=== PATIENT | female | born 1975 | race Caucasian/White ===

== ENCOUNTER 2024-10-17 10:40 | Emergency (ER) | payer BC ==
[~2024-10-17] VITALS: Ht 165.1 cm; Wt 70.6 kg
[2024-10-17] MEDS: KETOROLAC 30 MG/ML 1 ML VIAL IV ONE (13:00)
[2024-10-17 13:12] LABS: PLATELET COUNT, AUTOMATED 218 10^3/uL (150-450)
[2024-10-17 13:43] LABS: ALT/SGPT 24 U/L (7.0-40); AST/SGOT 24 U/L (<34); CALCIUM LEVEL 9.2 MG/DL (8.5-10.1); CARBON DIOXIDE LEVEL 28 MMOL/L (20-31); CHLORIDE LEVEL 104 MMOL/L (98-107); CREATININE FOR GFR 0.72 MG/DL (0.55-1.30); GLOMERULAR FILTRATION RATE > 90.0 (>51); POTASSIUM SERUM 3.3 MMOL/L (3.5-5.1); SODIUM LEVEL 143 MMOL/L (136-145)
[2024-10-17 14:13] VITALS: BP 131/83; TEMP 98.2; O2SAT 98
== END 2024-10-17 14:15 | disposition home or self-care (01) ==
LOC: M ED 10:40
DX: S39.011A Strain of muscle, fascia and tendon of abdomen, initial encounter (principal); W06.XXXA Fall from bed, initial encounter; I10 Essential (primary) hypertension; Z98.84 Bariatric surgery status; Y92.009 Unspecified place in unspecified non-institutional (private) residence as the place of occurrence of the external cause; Y93.89 Activity, other specified; Y99.9 Unspecified external cause status; Z88.2 Allergy status to sulfonamides
CPT/HCPCS: 36415; 71100; 80053; 83690; 85027; 96374; 99284; J1885